=== PATIENT | female | born 1955 | race Caucasian/White ===

== ENCOUNTER 2021-06-20 14:10 | Outpatient (CLI) | payer MEDICARE ==
--- NOTE | 2021-06-20 15:39 | DEXA Report ---
PROCEDURE: Dexa Spine and/or Hip INDICATIONS: POST MENOPAUSAL TECHNIQUE: Dual energy x-ray absorptiometry (DXA) was performed on a [employer] System. Regions measur ed are the AP Spine, femoral neck, and if needed forearm. COMPARISON: None. FINDINGS: Lumbar Spine: Bone Mineral Density 1.215 g/cm/cm,T score 0.3, normal. Left Hip: Bone Mineral Density 0.901 g/cm/cm,T score -0.8, normal. Left Femoral Neck: Bone Mineral Density 0.872 g/cm/cm, T score -1.2, osteopenic (T score greater or equal to -1.0: NORMAL) (T score from -1.1 to -2.4: OSTEOPENIA) (T score less than or equal to -2.5 to: OSTEOPOROSIS) Impression: Based on WHO criteria, the patient is osteopenic. Patients with diagnosis of osteoporosis or osteopenia should have regular bone mineral density assess ment. For those eligible for Medicare, routine testing is allowed once every 2 years. Testing frequ ency can be increased for patients who have rapidly progressing disease or for those who are receivin g medical therapy to restore bone mass. Reviewed by: Pito Orozco MD on 06/20/2021 3:38 PM PDT Approved by: Ptio Orozco MD on 06/20/2021 3:38 PM PDT Station ID: [id number]
== END 2021-06-20 14:11 | disposition home or self-care (01) ==
LOC: DI 14:10
PROVIDERS: ATTEND Nurse Practitioner Family
DX: M85.88 Other specified disorders of bone density and structure, other site (principal); Z78.0 Asymptomatic menopausal state